=== PATIENT | female | born 1980 | race Caucasian/White ===

== ENCOUNTER → 2021-09-08 | Outpatient (CLI) | payer OTHER ==
[~2021-09-08] MED LIST: LIDOCAINE HCL 4% LTA SOL 4 ML VIAL TP ONE
== END | disposition home or self-care (01) ==
LOC: WHH 08:16
PROVIDERS: ATTEND Family Medicine
DX: L97.312 Non-pressure chronic ulcer of right ankle with fat layer exposed (principal); L97.322 Non-pressure chronic ulcer of left ankle with fat layer exposed; S81.802D Unspecified open wound, left lower leg, subsequent encounter; K52.89 Other specified noninfective gastroenteritis and colitis; K90.0 Celiac disease; L84 Corns and callosities; Z87.891 Personal history of nicotine dependence; X58.XXXD Exposure to other specified factors, subsequent encounter
CPT/HCPCS: 11042

== ENCOUNTER → 2021-09-15 | Outpatient (CLI) | payer OTHER | END | disposition home or self-care (01) | LOC: WHH 08:01 | PROVIDERS: ATTEND Family Medicine | DX: L97.312 Non-pressure chronic ulcer of right ankle with fat layer exposed (principal); L97.321 Non-pressure chronic ulcer of left ankle limited to breakdown of skin; S81.802D Unspecified open wound, left lower leg, subsequent encounter; K52.89 Other specified noninfective gastroenteritis and colitis; K90.0 Celiac disease; L84 Corns and callosities; Z87.891 Personal history of nicotine dependence; X58.XXXD Exposure to other specified factors, subsequent encounter | CPT/HCPCS: 11104 ==

== ENCOUNTER → 2021-09-22 | Outpatient (CLI) | payer OTHER | END | disposition home or self-care (01) | LOC: WHH 08:17 | PROVIDERS: ATTEND Family Medicine | DX: L97.312 Non-pressure chronic ulcer of right ankle with fat layer exposed (principal); L97.321 Non-pressure chronic ulcer of left ankle limited to breakdown of skin; S81.802D Unspecified open wound, left lower leg, subsequent encounter; K52.89 Other specified noninfective gastroenteritis and colitis; K90.0 Celiac disease; L84 Corns and callosities; Z87.891 Personal history of nicotine dependence; X58.XXXD Exposure to other specified factors, subsequent encounter | CPT/HCPCS: 11042 ==

== ENCOUNTER → 2021-10-06 | Outpatient (CLI) | payer OTHER | END | disposition home or self-care (01) | LOC: WHH 10:35 | PROVIDERS: ATTEND Family Medicine | DX: L97.312 Non-pressure chronic ulcer of right ankle with fat layer exposed (principal); L97.321 Non-pressure chronic ulcer of left ankle limited to breakdown of skin; S81.802D Unspecified open wound, left lower leg, subsequent encounter; K52.89 Other specified noninfective gastroenteritis and colitis; K90.0 Celiac disease; L84 Corns and callosities; X58.XXXD Exposure to other specified factors, subsequent encounter | CPT/HCPCS: 11042; A6021 ==

== ENCOUNTER → 2021-10-13 | Outpatient (CLI) | payer OTHER | END | disposition home or self-care (01) | LOC: WHH 10:27 | PROVIDERS: ATTEND Family Medicine | DX: L97.312 Non-pressure chronic ulcer of right ankle with fat layer exposed (principal); S51.801A Unspecified open wound of right forearm, initial encounter; S81.802D Unspecified open wound, left lower leg, subsequent encounter; K52.89 Other specified noninfective gastroenteritis and colitis; K90.0 Celiac disease; L84 Corns and callosities; X58.XXXA Exposure to other specified factors, initial encounter; Y93.89 Activity, other specified; Y92.89 Other specified places as the place of occurrence of the external cause; Y99.8 Other external cause status; X58.XXXD Exposure to other specified factors, subsequent encounter | CPT/HCPCS: 11042; A6021 ==

== ENCOUNTER → 2021-10-28 | Outpatient (CLI) | payer OTHER | END | disposition home or self-care (01) | LOC: WHH 08:09 | PROVIDERS: ATTEND Family Medicine | DX: L97.312 Non-pressure chronic ulcer of right ankle with fat layer exposed (principal); S51.801D Unspecified open wound of right forearm, subsequent encounter; S81.802D Unspecified open wound, left lower leg, subsequent encounter; K52.89 Other specified noninfective gastroenteritis and colitis; K90.0 Celiac disease; L84 Corns and callosities; X58.XXXD Exposure to other specified factors, subsequent encounter | CPT/HCPCS: 11042; 87070 ==

== ENCOUNTER → 2021-11-03 | Outpatient (CLI) | payer OTHER | END | disposition home or self-care (01) | LOC: WHH 08:08 | PROVIDERS: ATTEND Family Medicine | DX: L97.312 Non-pressure chronic ulcer of right ankle with fat layer exposed (principal); L97.811 Non-pressure chronic ulcer of other part of right lower leg limited to breakdown of skin; L98.491 Non-pressure chronic ulcer of skin of other sites limited to breakdown of skin; S51.801D Unspecified open wound of right forearm, subsequent encounter; S81.802D Unspecified open wound, left lower leg, subsequent encounter; K52.89 Other specified noninfective gastroenteritis and colitis; K90.0 Celiac disease; L84 Corns and callosities; X58.XXXD Exposure to other specified factors, subsequent encounter | CPT/HCPCS: 11042; A4450 ==

== ENCOUNTER → 2021-11-17 | Outpatient (CLI) | payer OTHER | END | disposition home or self-care (01) | LOC: WHH 08:12 | PROVIDERS: ATTEND Family Medicine | DX: L97.312 Non-pressure chronic ulcer of right ankle with fat layer exposed (principal); L97.812 Non-pressure chronic ulcer of other part of right lower leg with fat layer exposed; S81.802D Unspecified open wound, left lower leg, subsequent encounter; K52.89 Other specified noninfective gastroenteritis and colitis; K90.0 Celiac disease; X58.XXXD Exposure to other specified factors, subsequent encounter | CPT/HCPCS: 11042 ==

== ENCOUNTER → 2021-11-24 | Outpatient (CLI) | payer OTHER ==
[~2021-11-24] MED LIST changes: +HONEY 1 APPL/ML TUBE TP ONE
== END | disposition home or self-care (01) ==
LOC: WHH 08:21
PROVIDERS: ATTEND Family Medicine
DX: L97.312 Non-pressure chronic ulcer of right ankle with fat layer exposed (principal); L97.812 Non-pressure chronic ulcer of other part of right lower leg with fat layer exposed; S81.802D Unspecified open wound, left lower leg, subsequent encounter; L88 Pyoderma gangrenosum; K52.89 Other specified noninfective gastroenteritis and colitis; K90.0 Celiac disease; X58.XXXD Exposure to other specified factors, subsequent encounter
CPT/HCPCS: 11042

== ENCOUNTER → 2021-12-01 | Outpatient (CLI) | payer OTHER | END | disposition home or self-care (01) | LOC: WHH 08:19 | PROVIDERS: ATTEND Family Medicine | DX: L97.312 Non-pressure chronic ulcer of right ankle with fat layer exposed (principal); L97.812 Non-pressure chronic ulcer of other part of right lower leg with fat layer exposed; L98.492 Non-pressure chronic ulcer of skin of other sites with fat layer exposed; S81.802D Unspecified open wound, left lower leg, subsequent encounter; L88 Pyoderma gangrenosum; K52.89 Other specified noninfective gastroenteritis and colitis; K90.0 Celiac disease; X58.XXXD Exposure to other specified factors, subsequent encounter | CPT/HCPCS: 99214 ==

== ENCOUNTER → 2021-12-23 | Outpatient (CLI) | payer OTHER ==
[~2021-12-23] MED LIST changes: -HONEY 1 APPL/ML TUBE TP ONE
== END | disposition home or self-care (01) ==
LOC: WHH 08:09
PROVIDERS: ATTEND Family Medicine
DX: L97.312 Non-pressure chronic ulcer of right ankle with fat layer exposed (principal); L97.812 Non-pressure chronic ulcer of other part of right lower leg with fat layer exposed; L98.492 Non-pressure chronic ulcer of skin of other sites with fat layer exposed; S81.802D Unspecified open wound, left lower leg, subsequent encounter; L88 Pyoderma gangrenosum; K52.89 Other specified noninfective gastroenteritis and colitis; K90.0 Celiac disease; X58.XXXD Exposure to other specified factors, subsequent encounter
CPT/HCPCS: 11042; A4450

== ENCOUNTER → 2022-01-06 | Outpatient (CLI) | payer OTHER | END | disposition home or self-care (01) | LOC: WHH 08:13 | PROVIDERS: ATTEND Family Medicine | DX: L97.312 Non-pressure chronic ulcer of right ankle with fat layer exposed (principal); L97.812 Non-pressure chronic ulcer of other part of right lower leg with fat layer exposed; L98.491 Non-pressure chronic ulcer of skin of other sites limited to breakdown of skin; L88 Pyoderma gangrenosum; S81.802D Unspecified open wound, left lower leg, subsequent encounter; K90.0 Celiac disease; K52.89 Other specified noninfective gastroenteritis and colitis; X58.XXXD Exposure to other specified factors, subsequent encounter | CPT/HCPCS: 11042 ==

== ENCOUNTER → 2022-02-03 | Outpatient (CLI) | payer OTHER | END | disposition home or self-care (01) | LOC: WHH 08:14 | PROVIDERS: ATTEND Family Medicine | DX: L97.312 Non-pressure chronic ulcer of right ankle with fat layer exposed (principal); L97.812 Non-pressure chronic ulcer of other part of right lower leg with fat layer exposed; L98.491 Non-pressure chronic ulcer of skin of other sites limited to breakdown of skin; S81.802D Unspecified open wound, left lower leg, subsequent encounter; L88 Pyoderma gangrenosum; L84 Corns and callosities; K52.89 Other specified noninfective gastroenteritis and colitis; K90.0 Celiac disease; X58.XXXD Exposure to other specified factors, subsequent encounter | CPT/HCPCS: 11042; 87070; 87077; 87186 ==

== ENCOUNTER → 2022-02-17 | Outpatient (CLI) | payer OTHER | LOC: WHH 07:59 | PROVIDERS: ATTEND Family Medicine | DX: L97.312 Non-pressure chronic ulcer of right ankle with fat layer exposed (principal); L98.491 Non-pressure chronic ulcer of skin of other sites limited to breakdown of skin; S81.802D Unspecified open wound, left lower leg, subsequent encounter; L88 Pyoderma gangrenosum; L84 Corns and callosities; K52.89 Other specified noninfective gastroenteritis and colitis; K90.0 Celiac disease; X58.XXXD Exposure to other specified factors, subsequent encounter | CPT/HCPCS: 11042 ==

== ENCOUNTER → 2022-03-03 | Outpatient (CLI) | payer OTHER | END | disposition home or self-care (01) | LOC: WHH 08:05 | PROVIDERS: ATTEND Family Medicine | DX: L97.312 Non-pressure chronic ulcer of right ankle with fat layer exposed (principal); L98.491 Non-pressure chronic ulcer of skin of other sites limited to breakdown of skin; S81.802D Unspecified open wound, left lower leg, subsequent encounter; L88 Pyoderma gangrenosum; L84 Corns and callosities; K90.0 Celiac disease; K52.89 Other specified noninfective gastroenteritis and colitis; Z79.899 Other long term (current) drug therapy; X58.XXXD Exposure to other specified factors, subsequent encounter | CPT/HCPCS: 11042; A4450 ==

== ENCOUNTER → 2022-04-27 | Outpatient (CLI) | payer OTHER | END | disposition home or self-care (01) | LOC: WHH 11:19 | PROVIDERS: ATTEND Family Medicine | DX: L97.312 Non-pressure chronic ulcer of right ankle with fat layer exposed (principal); L88 Pyoderma gangrenosum; S81.802D Unspecified open wound, left lower leg, subsequent encounter; K52.89 Other specified noninfective gastroenteritis and colitis; K90.0 Celiac disease; L84 Corns and callosities; Z79.899 Other long term (current) drug therapy; X58.XXXD Exposure to other specified factors, subsequent encounter | CPT/HCPCS: 99214; A6209 ==

== ENCOUNTER 2024-10-25 08:12 | Day surgery (SDC) | payer OTHER ==
[~2024-10-25] VITALS: Ht 157.5 cm; Wt 63.5 kg
[2024-10-25] VITALS (10 sets, daily range): BP systolic 122–133; BP diastolic 83–89; PULSE 73–86; RESP 15–18; TEMP 97.1–206.8
[~2024-10-25 08:12] MED LIST changes: +ADAL40SY SQ; -LIDOCAINE HCL 4% LTA SOL 4 ML VIAL TP ONE
[2024-10-25] MEDS: 0.9%NACL 1000ML 1,000 ML IV ONE (09:31)
[2024-10-25] MEDS ORDERED: proPOFol 10 MG/ML 20ML VIAL IV ONE ×2 (10:19→10:43)
== END 2024-10-25 11:50 | disposition home or self-care (01) ==
LOC: CANPRESDC → DAH 08:12 → ENDO 08:12
PROVIDERS: ATTEND Internal Medicine Gastroenterology
DX: K92.1 Melena (principal); K52.831 Collagenous colitis; K29.70 Gastritis, unspecified, without bleeding; K52.839 Microscopic colitis, unspecified; K90.0 Celiac disease; R19.7 Diarrhea, unspecified; K21.9 Gastro-esophageal reflux disease without esophagitis; Z79.899 Other long term (current) drug therapy; Z98.890 Other specified postprocedural states
CPT/HCPCS: 81025; 43239; 45380; J7030 ×2; J2704 ×2; A4620; A4215; A4223; A7002; A4222; A4221; A4663; A4606; J3490